=== PATIENT | female | born 1985 | race Caucasian/White ===

== ENCOUNTER 2021-02-27 10:01 | Emergency (ER) | payer MEDICAID, SELFPAY ==
[2021-02-27 10:22] VITALS: BP 129/77; PULSE 69; RESP 20; O2SAT 95; BMI 69.9
--- NOTE | 2021-02-27 10:45 | XR_ITS ---
PROCEDURE: XR RIBS LT MIN 3V W CXR1V CLINICAL INDICATION: left rib pain and popping after coughing COMPARISON: No exams were available for comparison FINDINGS: There is a mildly did offset fracture involving the lateral aspect of the left 8th rib with medial displacement of the distal fracture fragment by approximately 8 mm. No evidence of pneumothorax. Unremarkable cardiovascular structures with clear lungs. IMPRESSION: Mildly displaced left 8th rib Dictated by: Biju Mills MD 02/27/2021 11:20 Biju Mills MD in [place] 02/27/2021 11:20
[2021-02-27 11:23] VITALS: BP 126/72; PULSE 68; RESP 18; TEMP 36.6; O2SAT 97; BMI 46.3
--- NOTE | 2021-02-27 11:51 | HMH.EDUTC ---
[facility] [place] Clinical Impression: COPD exacerbation Left rib fracture Qualifiers: Encounter type: initial encounter Rib fracture type: single rib Fracture type: closed Qualified Code(s): S22.32XA - Fracture of one rib, left side, initial encounter for closed fracture Disposition: Home, Self-Care Condition on Discharge: Good Instructions: Rib Fracture, DI for Chronic Obstructive Pulmonary Disease, DI for Rib Fracture, DI for COVID-19 (Suspected or Confirmed ), Preventing the Spread of Coronavirus Discharge Instructions Additional Instructions: Use the incentive spirometer 10 times ever couple of hours while you are awake for the next 2 weeks. Take the medications as directed. Follow up with your primary care doctor. GO TO THE ER FOR ANY WORSENING SYMPTOMS, ESPECIALLY ANY WORSENING SHORTNESS OF BREATH, FEVER, ETC. Drink plenty of fluids. Quarantine until you know the results of your covid-19 test. If it is positive, the health department should call you and give you further instructions about your length of Quarantine and other things. Notify your school or workplace of your results and follow their instructions regarding return to work/school. The cough medication (promethazine dm) will make you drowsy, so don't drive or operate heavy machinery after taking it. Prescriptions: Promethazine/Dextromethorphan [Promethazine-Dm Syrup] 5 ml PO Q6HP PRN #240 ml PRN Reason: Cough Transmission Status: Received by [facility] predniSONE [Deltasone 10mg tablet] 10 mg PO DAILY 9 Days #21 tab Transmission Status: Received by [facility] Azithromycin [Z-Cleve 250mg Tab*] 250 mg PO UD DOSE PK #6 tab Transmission Status: Received by [facility] Referrals: Radha Rivera MD [Primary Care Provider] - Time of Disposition: 12:40 Medical Decision Making - Medical Records Medical records reviewed: No: I reviewed the patient's medical records. - Benji Inquiry Pt receiving controlled substance: No Vital Signs: 02/27/21 10:22 02/27/21 11:23 02/27/21 12:58 Temperature 97.9 F 97.9 F Temperature Source Oral Pulse Rate 68 Pulse Rate [Right Radial] 69 68 Respiratory Rate 20 18 18 Blood Pressure 126/72 Blood Pressure [Right Arm] 129/77 126/72 Blood Pressure Mean [Right Arm] 94 90 Blood Pressure Source [Right Arm] Automatic Cuff Automatic Cuff Blood Pressure Position [Right Arm] Sitting Sitting 02 Sat by Pulse Oximetry 95 97 Oxygen Delivery Method Room Air Room Air - Radiology Data #1 Image(s): Chest, Other (ribs) Image Reviewed: Yes I reviewed the patient's radiology image, Yes I have reviewed radiologist's interpretation Preliminary Findings: Abnormal PROCEDURE: XR RIBS LT MIN 3V W CXR1V CLINICAL INDICATION: left rib pain and popping after coughing COMPARISON: No exams were available for comparison FINDINGS: There is a mildly did offset fracture involving the lateral aspect of the left 8th rib with medial displacement of the distal fracture fragment by approximately 8 mm. No evidence of pneumothorax. Unremarkable cardiovascular structures with clear lungs. IMPRESSION: Mildly displaced left 8th rib Dictated by: Biju Mills MD 02/27/2021 11:20 Biju Mills MD in [place] 02/27/2021 11:20 [facility] [place] - General Stated complaint: lt rib pain, popping noise Time Seen by Provider: 02/27/21 11:51 Mode of Arrival: Wheelchair Source of Information: Patient Limitations: No Limitations Description of Symptoms (Recalled from Triage Doc. by RN): C/O lt rib pain x1 week. Pt advises that after coughing this am, she felt a pop in her ribs HEENT Symptoms (Recalled from RN notes): No Resp Symptoms (Recalled from RN notes): No Skin Symptoms (Recalled from RN notes): No MS Symptoms (Recalled from RN notes): No Functional Status (Recalled from RN notes): n/a - History of Present Illness Provider Complaint: She states that earlier today she was cough
[2021-02-27 12:58] VITALS: BP 126/72; PULSE 68; RESP 18; TEMP 36.6; O2SAT 97
== END 2021-02-27 13:00 | disposition home or self-care (01) ==
PROVIDERS: Emergency Provider Nurse Practitioner Family; PCP Emergency Medicine
DX: S22.32XA Fracture of one rib, left side, initial encounter for closed fracture (principal); J44.1 Chronic obstructive pulmonary disease with (acute) exacerbation
CPT/HCPCS: 71101; 99202; G0463

== ENCOUNTER 2021-03-12 20:44 | Emergency (ER) | payer MEDICAID, SELFPAY ==
[2021-03-12 20:47] VITALS: BP 105/70; PULSE 75; RESP 18; TEMP 36.9; O2SAT 94; BMI 53.0
--- NOTE | 2021-03-12 21:11 | CT_ITS ---
PROCEDURE INFORMATION: Exam: CT Abdomen And Pelvis With Contrast Exam date and time: 03/12/2021 9:11 PM Age: 35 years old Clinical indication: Abdominal pain; Localized; Left upper quadrant (luq); Prior surgery; Surgery date: 6+ months; Surgery type: Hysterectomy, gastric bypass; Patient HX: Luq abd pain, left sided rib pain; Additional info: Luq pain TECHNIQUE: Imaging protocol: Computed tomography of the abdomen and pelvis with contrast. Radiation optimization: All CT scans at this facility use at least one of these dose optimization techniques: automated exposure control; mA and/or kV adjustment per patient size (includes targeted exams where dose is matched to clinical indication); or iterative reconstruction. Contrast material: ISOVUE; Contrast volume: 75 ml; Contrast route: IV; COMPARISON: CR XR RIBS LT MIN 3V W CXR1V 02/27/2021 10:42 AM FINDINGS: Tubes, catheters and devices: There is a neurostimulator device situated in the right gluteal subcutaneous adipose tissue, with lead tip in the right hemipelvis. Liver: Liver is enlarged measuring 20 cm in craniocaudal dimension. Mild hepatic steatosis. Gallbladder and bile ducts: Cholecystectomy. No biliary dilation. Pancreas: Mild fatty atrophy of the pancreas. Spleen: Normal. No splenomegaly. Adrenal glands: Unremarkable. Kidneys and ureters: There are innumerable right renal cysts, largest of which measures nearly 6 cm in size. There are also several left renal cysts measuring up to 2.4 cm. No hydronephrosis. Stomach and bowel: Postsurgical changes of gastric bypass. No bowel obstruction. Moderate amount of solid stool throughout the colon. Colonic diverticulosis, extensive in the sigmoid region, without evidence of acute diverticulitis. Appendix: No evidence of appendicitis. Intraperitoneal space: No pneumoperitoneum. No ascites. Vasculature: No abdominal aortic aneurysm. Lymph nodes: No enlarged lymph nodes. Urinary bladder: Unremarkable as visualized. No wall thickening. Reproductive: Hysterectomy. Bones/joints: Mildly displaced fractures of the left posterolateral 8th and 9th ribs. Nonaggressive 0.8 cm lucent focus in the right femoral head, with a sclerotic margin, benign. Degenerative changes of the spine, most advanced distally. Mild bilateral hip osteoarthrosis. Soft tissues: Unremarkable. IMPRESSION: 1. No evidence of an acute traumatic injury within the abdomen/pelvis. 2. Acute, mildly displaced left posterolateral 7th and 8th rib fractures. 3. Bilateral renal cysts, extensive on the right. 4. Gastric bypass. No bowel obstruction. Colonic diverticulosis. COMMENTS: Consistent with the [place]'s Incidental Findings Committee white paper (J Am Kt Radiol 2018): Any incidental renal lesion less than 1 cm or classified as too small to characterize, or any incidental cystic renal lesion characterized as simple-appearing, is likely benign. No follow-up imaging is recommended for these lesions per consensus recommendations based on imaging criteria.
--- NOTE | 2021-03-12 21:11 | CT_ITS ---
PROCEDURE INFORMATION: Exam: CT Chest With Contrast; Diagnostic Exam date and time: 03/12/2021 9:11 PM Age: 35 years old Clinical indication: Left-sided; Patient HX: Llq abd pain, left sided rib pain, SOA; Additional info: Shortness of breath, left rib pain TECHNIQUE: Imaging protocol: Diagnostic computed tomography of the chest with contrast. Radiation optimization: All CT scans at this facility use at least one of these dose optimization techniques: automated exposure control; mA and/or kV adjustment per patient size (includes targeted exams where dose is matched to clinical indication); or iterative reconstruction. Contrast material: ISOVUE; Contrast volume: 75 ml; Contrast route: IV; COMPARISON: CR XR RIBS LT MIN 3V W CXR1V 02/27/2021 10:42 AM FINDINGS: Lungs: There is a 1.6 cm left lower lobe nodule with central calcification, most compatible with old granulomatous disease. Hamartoma would be a less likely possibility, given absence of intrinsic fat attenuation. In any case, it is presumed benign. Mild dependent atelectasis. No airspace consolidation or evidence of pneumonia. Pleural spaces: There is a small left pleural effusion measuring above simple fluid attenuation. No pneumothorax. Heart: Normal heart size. No pericardial effusion. No appreciable coronary arterial calcification. Aorta: Unremarkable. No aortic aneurysm. Lymph nodes: Unremarkable. No enlarged lymph nodes. Spleen: Spleen measures 12.5 cm in length, borderline enlarged. Stomach: Postsurgical changes of gastric bypass are partially visualized. Bones/joints: There are acute, mildly displaced fractures of the posterolateral left 8th and 9th ribs. Soft tissues: Mild soft tissue swelling in the left posterolateral chest wall around the rib fractures. IMPRESSION: 1. Acute, mildly displaced fractures of the posterolateral left 8th and 9th ribs. 2. Small left pleural effusion measuring above simple attenuation, likely hemothorax. 3. Benign calcified left lower lobe nodule, probably related to old granulomatous disease.
[2021-03-12 22:07] LABS: Basophils # 0.1 K/mm3 (0-0.2); Basophils % 1.1 % (0.1-2.0); Eosinophils # 0.2 K/mm3 (0.0-0.4); Lymphocytes # 1.5 K/mm3 (0.7-4.5); Lymphocytes % 19.4 % (10-50); Mean Corpuscular HGB Conc 31.5 g/dL (31.8-35.4); Mean Corpuscular Hemoglobin 30.1 pg (27.0-31.2); Mean Corpuscular Volume 95.8 fl (81-99); Mean Platelet Volume 8.1 fl (7.4-10.4); Monocytes # 0.5 K/mm3 (0.1-1.0); Monocytes % 6.9 % (1.7-9.3); Neutrophils # 5.4 K/mm3 (1.8-7.8); Neutrophils % 70.6 % (37.0-80.0); Platelet Count 191 K/mm3 (142-424); Red Blood Count 6.32 M/mm3 (4.20-5.40); Red Cell Distribution Width 14.5 % (11.5-17.5); White Blood Count 7.6 K/mm3 (4.8-10.8)
[2021-03-12 22:14] LABS: Alanine Aminotransferase 17 U/L (12-78); Albumin Level 4.1 g/dl (3.5-5.0); Albumin/Globulin Ratio 1.3 (1.1-1.8); Alkaline Phosphatase 114 U/L (38-126); Anion Gap 6.4 mEq/L (5-15); Aspartate Amino Transferase 21 U/L (14-36); Bilirubin,Total 0.5 mg/dl (0.2-1.3); Blood Urea Nitrogen 16 mg/dl (7-17); Calcium 8.7 mg/dl (8.4-10.2); Carbon Dioxide 34 mmol/L (22.0-30.0); Chloride 102 mmol/L (98-107); Creatinine Clearance Estimated 63 mL/min (50-200); Estimated Glomerular Filt Rate 64 ml/min (>60); GFR (African American) 77 ML/MIN (>60); Globulin 3.2 g/dL (1.3-3.2); Glucose 88 mg/dl (74-100); Lipase 47 U/L (23-300); Potassium 4.4 mmoL/L (3.5-5.1); Sodium 138 mmol/L (136-145); Total Protein,Serum 7.3 g/dl (6.3-8.2)
[2021-03-12 22:19] LABS: Hematocrit 60.4 % (37.0-47.0)
[2021-03-12 22:22] LABS: Hemoglobin 19.1 g/dL (12.2-16.2)
[2021-03-12 22:31] LABS: HCG Qualitative, Serum Negative (Negative)
--- NOTE | 2021-03-12 22:53 | HMH.EDGENADL ---
ED Disposition Clinical Impression: Ribs, multiple fractures Qualifiers: Encounter type: subsequent encounter Fracture type: closed Laterality: left Fracture healing: with routine healing Qualified Code(s): S22.42XD - Multiple fractures of ribs, left side, subsequent encounter for fracture with routine healing Disposition: Home, Self-Care Condition on Discharge: Good Instructions: DI for Rib Fracture, DI for Acute Pain -- Child Additional Instructions: Continue using your incentive spirometer and taking your pain medication at home - follow up wiht your PCP for further pain management Prescriptions: Lidocaine [Lidoderm 5% transdermal patch] 1 each TP Q24H 14 Days #14 patch Prescription Printed Promethazine/Dextromethorphan [Promethazine-Dm 6.25-15 mg/5Ml] 120 ml PO QID PRN #120 ml PRN Reason: Cough Prescription Printed Referrals: Radha Rivera MD [Primary Care Provider] - - Critical Care Critical Care Time: No Attestation: On 03/12/21, the high probability of a clinically significant, sudden or life threatening deterioration of the following system(s) required my full and direct attention, intervention and personal management. The time I documented below is in addition to time spent performing reported procedures but includes the following listed in this critical care notation. Medical Decision Making - Benji Inquiry Pt receiving controlled substance: No Vital Signs: 03/12/21 20:47 03/13/21 01:04 Temperature 98.5 F 98.5 F Temperature Source Oral Pulse Rate 79 Pulse Rate [Right] 75 Respiratory Rate 18 18 Blood Pressure 115/74 Blood Pressure [Right Arm] 105/70 L Blood Pressure Mean [Right Arm] 81 02 Sat by Pulse Oximetry 94 L - Lab Data Lab Results 03/12/21 21:59: WBC 7.6, RBC 6.32 H, Hgb 19.1 H, Hct 60.4 H*, MCV 95.8, MCH 30.1, MCHC 31.5 L, RDW 14.5, Plt Count 191, MPV 8.1, Neut % (Auto) 70.6, Lymph % (Auto) 19.4, [place] % (Auto) 6.9, Eos % (Auto) 2.0, Baso % (Auto) 1.1, Neut # (Auto) 5.4, Lymph # (Auto) 1.5, [place] # (Auto) 0.5, Eos # (Auto) 0.2, Baso # (Auto) 0.1 03/12/21 21:59: Sodium 138, Potassium 4.4, Chloride 102, Carbon Dioxide 34 H, Anion Gap 6.4, BUN 16, Creatinine 1.00, Estimated Creat Clear 63, Estimated GFR 64, Est GFR ( Amer) 77, Glucose 88, Calcium 8.7, Total Bilirubin 0.5, AST 21, ALT 17, Alkaline Phosphatase 114, Total Protein 7.3, Albumin 4.1, Globulin 3.2, Albumin/Globulin Ratio 1.3, Lipase 47 03/12/21 21:59: Serum HCG, Qual Negative 03/12/21 22:00: SARS-CoV-2 (PCR) Not detected, Influenza A Untype (PCR) Not detected, Influenza Type B (PCR) Not detected Result diagrams: 03/12/21 21:59 03/12/21 21:59 Orders (Tests/Meds): ED MEDICATIONS Discontinued Medications Generic Name Dose Route Start Last Admin Trade Name Toniq PRN Reason Stop Dose Admin Hydromorphone HCl 1 mg 03/13/21 00:06 03/13/21 00:10 Hydromorphone 2mg/Ml Syringe IV 03/13/21 00:07 1 mg ONCE ONE Administration Lactated Ringer's 1,000 mls @ 999 mls/hr 03/12/21 22:15 03/12/21 22:24 Lactated Ringer's 1000 Ml Bag IV 03/12/21 23:15 999 mls/hr .Q1H1M KELSEY Administration Iopamidol 75 ml 03/12/21 23:12 03/12/21 23:13 Iopamidol-370 (76%);100ml Bottle IV 03/12/21 23:13 75 ml ONCE ONE Administration Methylprednisolone Sodium Succinate 125 mg 03/12/21 21:44 03/12/21 22:07 Methylprednisolone Sod Succ 125mg Vial IV 03/12/21 21:45 125 mg ONCE ONE Administration Morphine Sulfate 4 mg 03/12/21 22:32 03/12/21 22:43 Morphine 4mg/Ml Syringe IV 03/12/21 22:33 4 mg ONCE ONE Administration Sodium Chloride 10 ml 03/12/21 23:12 03/12/21 23:13 Sodium Chloride 0.9% 10ml Syr (Rad Only) IV 03/12/21 23:13 10 ml ONCE ONE Administration Medical Decision Narrative: The patient is a 35 year old female who presents with left chest wall and LUQ pain and cough. She is awake, alert, stable. She is satting well on room air. She has significant pain. Labs incl
[2021-03-12 22:57] LABS: Coronavirus 19, PCR Not Detected (NotDetected); Influenza A, PCR Not Detected (NotDetected); Influenza B, PCR Not Detected (NotDetected)
[2021-03-13 01:04] VITALS: BP 115/74; PULSE 79; RESP 18; TEMP 36.9; O2SAT 95
== END 2021-03-13 01:30 | disposition home or self-care (01) ==
PROVIDERS: Emergency Provider Emergency Medicine; PCP Emergency Medicine
DX: S22.42XA Multiple fractures of ribs, left side, initial encounter for closed fracture (principal); J44.1 Chronic obstructive pulmonary disease with (acute) exacerbation; Z88.1 Allergy status to other antibiotic agents; Z88.8 Allergy status to other drugs, medicaments and biological substances
CPT/HCPCS: 71260; 74177; 80053; 83690; 84703; 85025; 96375; 99283; C9803; Q9967; U0003; U0005

== ENCOUNTER 2021-04-06 10:27 | Emergency (ER) | payer MEDICAID, SELFPAY ==
[2021-04-06 10:28] VITALS: BP 115/72; PULSE 98; RESP 18; TEMP 37.2; O2SAT 92; BMI 52.9
--- NOTE | 2021-04-06 10:58 | CT_ITS ---
PROCEDURE: CT ANGIO CHEST PE PROTOCOL CLINCIAL INDICATION: SOB, cough COMPARISON: CT CT CHEST W CON from 03/12/2021 TECHNIQUE: IV Contrast: 70ML Isovue 370 Axial images obtained with sagittal and coronal reformats. All CT scans at the facility use one or more dose reduction, viz: automated exposure control, ma/kV adjustment per patient size (including targeted exams where dose is matched to indication, i.e. head), or iterative reconstruction technique. FINDINGS: HEART AND MEDIASTINAL STRUCTURES: Unremarkable. LUNGS AND PLEURAL SPACES: There is consolidation of the left lower lobe with peribronchial cuffing and a small prominent left hilar lymph node. In addition, there is a 11 millimeter nodule in the left lower lobe which is not well visualized today due to the consolidation however appears overall stable since the prior study. BONY STRUCTURES: There are fractures of the left lateral 7th 8th and 9th ribs without significant displacement. The left lateral 7th rib fracture is new. The 8th and 9th rib fractures are stable since prior study. There is no pneumothorax. UPPER ABDOMEN: Unremarkable. ADDITIONAL FINDINGS: There is no evidence of pulmonary embolism to the segmental and subsegmental arteries. Prior Rubi-en-Y gastric bypass. Thoracic spondylosis. IMPRESSION: 1. No evidence of pulmonary embolism. 2. New left lateral 7th rib fracture. 3. New left lower lobe consolidation which could represent aspiration, pneumonia, or atelectasis due to the rib fracture. 4. Stable left lower lobe pulmonary nodule. Dictated by: Trish Burns MD 04/06/2021 13:26 Trish Burns MD in [place] 04/06/2021 13:26
[2021-04-06 11:01] VITALS: BP 107/69; PULSE 87; O2SAT 92
--- NOTE | 2021-04-06 11:16 | HMH.EDGENADL ---
ED Disposition Clinical Impression: Left rib fracture Qualifiers: Encounter type: initial encounter Rib fracture type: single rib Fracture type: closed Qualified Code(s): S22.32XA - Fracture of one rib, left side, initial encounter for closed fracture Left lower lobe pneumonia Qualifiers: Pneumonia type: due to unspecified organism Qualified Code(s): J18.9 - Pneumonia, unspecified organism Disposition: Home, Self-Care Condition on Discharge: Good Instructions: DI for Rib Fracture Prescriptions: Doxycycline Hyclate [Doxycycline Hyclate 100mg Tablet] 100 mg PO Q12 #20 tab Transmission Status: Pending to [facility] Referrals: Provider,Referral, [Primary Care Provider] - - Critical Care Critical Care Time: No Attestation: On 04/06/21, the high probability of a clinically significant, sudden or life threatening deterioration of the following system(s) required my full and direct attention, intervention and personal management. The time I documented below is in addition to time spent performing reported procedures but includes the following listed in this critical care notation. Medical Decision Making - Medical Records Medical records reviewed: Yes: I reviewed the patient's medical records. - Benji Inquiry Pt receiving controlled substance: No Benji was queried for this patient: Yes Reference #:: [id number] Vital Signs: 04/06/21 10:28 04/06/21 11:01 04/06/21 11:30 Temperature 98.9 F Temperature Source Oral Pulse Rate 87 85 Pulse Rate [Left Radial] 98 H Respiratory Rate 18 Blood Pressure 107/69 L 113/66 Blood Pressure [Right Arm] 115/72 Blood Pressure Mean 81 79 Blood Pressure Mean [Right Arm] 86 Blood Pressure Source [Right Arm] Automatic Cuff Blood Pressure Position [Right Arm] Sitting 02 Sat by Pulse Oximetry 92 L 88 L 88 L Oxygen Delivery Method Room Air 04/06/21 12:00 Temperature Temperature Source Pulse Rate 86 Pulse Rate [Left Radial] Respiratory Rate Blood Pressure 104/68 L Blood Pressure [Right Arm] Blood Pressure Mean 78 Blood Pressure Mean [Right Arm] Blood Pressure Source [Right Arm] Blood Pressure Position [Right Arm] 02 Sat by Pulse Oximetry 88 L Oxygen Delivery Method - Lab Data Lab Results 04/06/21 11:10: WBC 7.3, RBC 6.20 H, Hgb 18.7 H, Hct 59.1 H, MCV 95.4, MCH 30.2, MCHC 31.6 L, RDW 15.1, Plt Count 172, MPV 8.5, Neut % (Auto) 91.0 H, Lymph % (Auto) 6.6 L, [place] % (Auto) 1.8, Eos % (Auto) 0.1, Baso % (Auto) 0.5, Neut # (Auto) 6.7, Lymph # (Auto) 0.5 L, [place] # (Auto) 0.1, Eos # (Auto) 0.0, Baso # (Auto) 0.0, Total Counted 100, Neutrophils % (Manual) 93 H, Lymphocytes % (Manual) 5 L, Monocytes % (Manual) 2, Platelet Estimate Normal, Hypochromasia 1+, Macrocytosis 1+ 04/06/21 11:10: Sodium 139, Potassium 3.8, Chloride 99, Carbon Dioxide 34 H, Anion Gap 9.8, BUN 22 H, Creatinine 1.00, Estimated Creat Clear 60, Estimated GFR 64, Est GFR ( Amer) 77, Glucose 127 H, Calcium 8.8, Total Bilirubin 0.4, AST 20, ALT 16, Alkaline Phosphatase 121, Troponin I < 0.01, Total Protein 7.0, Albumin 3.9, Globulin 3.1, Albumin/Globulin Ratio 1.3 Result diagrams: 04/06/21 11:10 04/06/21 11:10 Orders (Tests/Meds): ED MEDICATIONS Discontinued Medications Generic Name Dose Route Start Last Admin Trade Name Freq PRN Reason Stop Dose Admin Sodium Chloride 1,000 mls @ 999 mls/hr 04/06/21 11:00 04/06/21 11:03 Sod Chlor 0.9% 1000ml Bag IV 04/06/21 12:00 999 mls/hr .Q1H1M KELSEY Administration Iopamidol 75 ml 04/06/21 12:36 04/06/21 12:36 Iopamidol-370 (76%);100ml Bottle IV 04/06/21 12:37 75 ml ONCE ONE Administration Sodium Chloride 10 ml 04/06/21 12:36 04/06/21 12:36 Sodium Chloride 0.9% 10ml Syr (Rad Only) IV 04/06/21 12:37 10 ml ONCE ONE Administration Sodium Chloride 50 ml 04/06/21 12:36 04/06/21 12:36 0.9 % Sodium Chloride 50 Ml Vial IV 04/06/21 12:37 50 ml ONCE ONE Administration ORDERS Marifer
[2021-04-06 11:30] VITALS: BP 113/66; PULSE 85; O2SAT 92
[2021-04-06 11:30] LABS: Chloride 99 mmol/L (98-107)
[2021-04-06 11:31] LABS: Potassium 3.8 mmoL/L (3.5-5.1); Sodium 139 mmol/L (136-145)
[2021-04-06 11:33] LABS: Alanine Aminotransferase 16 U/L (12-78); Alkaline Phosphatase 121 U/L (38-126); Aspartate Amino Transferase 20 U/L (14-36); Bilirubin,Total 0.4 mg/dl (0.2-1.3); Blood Urea Nitrogen 22 mg/dl (7-17); Creatinine Clearance Estimated 60 mL/min (50-200); Estimated Glomerular Filt Rate 64 ml/min (>60); GFR (African American) 77 ML/MIN (>60)
[2021-04-06 11:34] LABS: Albumin Level 3.9 g/dl (3.5-5.0); Albumin/Globulin Ratio 1.3 (1.1-1.8); Anion Gap 9.8 mEq/L (5-15); Calcium 8.8 mg/dl (8.4-10.2); Carbon Dioxide 34 mmol/L (22.0-30.0); Globulin 3.1 g/dL (1.3-3.2); Glucose 127 mg/dl (74-100)
[2021-04-06 11:35] LABS: Basophils % 0.5 % (0.1-2.0); Eosinophils % 0.1 % (0.1-12.0); Lymphocytes # 0.5 K/mm3 (0.7-4.5); Lymphocytes % 6.6 % (10-50); Mean Corpuscular HGB Conc 31.6 g/dL (31.8-35.4); Mean Corpuscular Hemoglobin 30.2 pg (27.0-31.2); Mean Corpuscular Volume 95.4 fl (81-99); Mean Platelet Volume 8.5 fl (7.4-10.4); Monocytes # 0.1 K/mm3 (0.1-1.0); Monocytes % 1.8 % (1.7-9.3); Neutrophils # 6.7 K/mm3 (1.8-7.8); Platelet Count 172 K/mm3 (142-424); Red Cell Distribution Width 15.1 % (11.5-17.5); White Blood Count 7.3 K/mm3 (4.8-10.8)
[2021-04-06 11:42] LABS: Hematocrit 59.1 % (37.0-47.0); Hemoglobin 18.7 g/dL (12.2-16.2)
[2021-04-06 11:44] LABS: MANUAL DIFFERENTIAL MANUAL DIFFERENTIAL (MANUAL DIFF)
[2021-04-06 11:46] LABS: Troponin I < 0.01 ng/ml (0.00-0.034)
[2021-04-06 11:56] LABS: Hypochromasia 1+; Lymphocytes % 5 % (10-50); Macrocytosis 1+; Monocytes % 2 % (2-9); Neutrophils % 93 % (42-76); Platelet Estimate Normal; Total Cells Counted 100
[2021-04-06 12:00] VITALS: BP 104/68; PULSE 86; O2SAT 92
[2021-04-06 14:51] VITALS: BP 104/68; PULSE 86; RESP 16; TEMP 37.2; O2SAT 92
== END 2021-04-06 14:52 | disposition home or self-care (01) ==
PROVIDERS: Emergency Provider Emergency Medicine
DX: S22.32XA Fracture of one rib, left side, initial encounter for closed fracture (principal); J18.9 Pneumonia, unspecified organism; J44.9 Chronic obstructive pulmonary disease, unspecified
CPT/HCPCS: 71275; 80053; 84484; 85007; 85025; 96365; 96375; 99283; Q9967

== ENCOUNTER → 2021-06-10 13:58 | Outpatient (CLI) | payer MEDICAID, SELFPAY | PROVIDERS: Visit Provider Nurse Practitioner | DX: Z20.822 Contact with and (suspected) exposure to COVID-19 (principal) | CPT/HCPCS: C9803; U0003; U0005 ==

== ENCOUNTER 2021-06-23 16:16 | Emergency (ER) | payer MEDICAID, SELFPAY ==
[2021-06-23 16:18] VITALS: BP 143/96; PULSE 103; RESP 19; TEMP 36.8; O2SAT 94; BMI 53.6
[2021-06-23 16:52] VITALS: BMI 53.6
[2021-06-23 16:57] LABS: Microscopic, Urine URINE MICROSCOPIC (MICROSCOPIC)
[2021-06-23 17:00] LABS: Appearance,Urine CLEAR (Clear); Bilirubin,Urine Negative (Negative); Blood, Urine Negative (Negative); Color,Urine YELLOW (Yellow); Glucose,Urine (UA) Negative (Negative); Ketones,Urine Negative (Negative); Leukocyte Esterase,Urine Negative (Negative); Nitrate,Urine Negative (Negative); Protein,Urine Negative (Negative); Specific Gravity, Urine 1.015 (1.005-1.030); Urobilinogen,Urine 0.2 EU/dl (0.2)
[2021-06-23 17:01] LABS: Coronavirus 19, PCR Not Detected (NotDetected); Influenza A, PCR Not Detected (NotDetected); Influenza B, PCR Not Detected (NotDetected)
[2021-06-23 17:04] LABS: Chloride 101 mmol/L (98-107); Potassium 3.9 mmoL/L (3.5-5.1); Sodium 137 mmol/L (136-145)
[2021-06-23 17:07] LABS: Alanine Aminotransferase 19 U/L (12-78); Albumin Level 4.1 g/dl (3.5-5.0); Albumin/Globulin Ratio 1.2 (1.1-1.8); Alkaline Phosphatase 159 U/L (38-126); Anion Gap 7.9 mEq/L (5-15); Aspartate Amino Transferase 21 U/L (14-36); Bilirubin,Total 0.7 mg/dl (0.2-1.3); Blood Urea Nitrogen 16 mg/dl (7-17); Calcium 8.8 mg/dl (8.4-10.2); Carbon Dioxide 32 mmol/L (22.0-30.0); Creatinine Clearance Estimated 52 mL/min (50-200); Estimated Glomerular Filt Rate 57 ml/min (>60); GFR (African American) 69 ML/MIN (>60); Globulin 3.4 g/dL (1.3-3.2); Glucose 110 mg/dl (74-100); Lipase 56 U/L (23-300); Total Protein,Serum 7.5 g/dl (6.3-8.2)
[2021-06-23 17:12] LABS: Urine Pregnancy, HCG Qual. Negative (Negative)
[2021-06-23 17:17] LABS: Basophils # 0.2 K/mm3 (0-0.2); Eosinophils # 0.6 K/mm3 (0.0-0.4); Lymphocytes # 1.6 K/mm3 (0.7-4.5); Lymphocytes % 17.6 % (10-50); Mean Corpuscular HGB Conc 32.2 g/dL (31.8-35.4); Mean Corpuscular Hemoglobin 29.9 pg (27.0-31.2); Mean Corpuscular Volume 92.7 fl (81-99); Mean Platelet Volume 8.3 fl (7.4-10.4); Monocytes # 0.5 K/mm3 (0.1-1.0); Monocytes % 5.6 % (1.7-9.3); Neutrophils # 6.4 K/mm3 (1.8-7.8); Neutrophils % 68.7 % (37.0-80.0); Platelet Count 218 K/mm3 (142-424); Red Blood Count 6.51 M/mm3 (4.20-5.40); Red Cell Distribution Width 15.8 % (11.5-17.5); White Blood Count 9.3 K/mm3 (4.8-10.8)
[2021-06-23 17:20] LABS: Squamous Epithelial Cell,Urine Occasional #/hpf (0-5); WBC,Urine Occasional #/hpf (0-3)
[2021-06-23 17:21] LABS: Bacteria,Urine Trace /lpf
[2021-06-23 17:22] LABS: Hematocrit 60.3 % (37.0-47.0)
--- NOTE | 2021-06-23 17:24 | PC.NURSE ---
Spoke with govind in lab about a critical lab value of HCT of 60.3.
--- NOTE | 2021-06-23 17:34 | HMH.EDABDPAI ---
ED Disposition Clinical Impression: Gastroenteritis Disposition: Home, Self-Care Condition on Discharge: Good Instructions: DI for Acute Abdominal Pain Prescriptions: Promethazine HCl [Phenergan 25mg tab] 25 mg PO BID #12 tab Transmission Status: Pending to [facility] Referrals: Laura Ortiz PA [Primary Care Provider] - - Critical Care Critical Care Time: No Attestation: On 06/23/21, the high probability of a clinically significant, sudden or life threatening deterioration of the following system(s) required my full and direct attention, intervention and personal management. The time I documented below is in addition to time spent performing reported procedures but includes the following listed in this critical care notation. Medical Decision Making - Medical Records Medical records reviewed: Yes: I reviewed the patient's medical records. - Benji Inquiry Pt receiving controlled substance: No Vital Signs: 06/23/21 16:18 Temperature 98.3 F Temperature Source Oral Pulse Rate [Right Radial] 103 H Respiratory Rate 19 Blood Pressure [Right Arm] 143/96 H Blood Pressure Mean [Right Arm] 111 Blood Pressure Source [Right Arm] Automatic Cuff Blood Pressure Position [Right Arm] Sitting 02 Sat by Pulse Oximetry 94 L Oxygen Delivery Method Room Air - Lab Data Lab Results 06/23/21 16:47: Urine Color Yellow, Urine Appearance Clear, Urine pH 6.0, Ur Specific [place] 1.015, Urine Protein Negative, Urine Glucose (UA) Negative, Urine Ketones Negative, Urine Blood Negative, Urine Nitrate Negative, Urine Bilirubin Negative, Urine Urobilinogen 0.2, Ur Leukocyte Esterase Negative, Urine RBC None, Urine WBC Occasional, Ur Squamous Epith Cells Occasional, Urine Bacteria Trace 06/23/21 16:47: WBC 9.3, RBC 6.51 H, Hct 60.3 H*, MCV 92.7, MCH 29.9, MCHC 32.2, RDW 15.8, Plt Count 218, MPV 8.3, Neut % (Auto) 68.7, Lymph % (Auto) 17.6, [place] % (Auto) 5.6, Eos % (Auto) 6.0, Baso % (Auto) 2.0, Neut # (Auto) 6.4, Lymph # (Auto) 1.6, [place] # (Auto) 0.5, Eos # (Auto) 0.6 H, Baso # (Auto) 0.2 06/23/21 16:47: Urine HCG, Qual Negative 06/23/21 16:47: Sodium 137, Potassium 3.9, Chloride 101, Carbon Dioxide 32 H, Anion Gap 7.9, BUN 16, Creatinine 1.10 H, Estimated Creat Clear 52, Estimated GFR 57 L, Est GFR ( Amer) 69, Glucose 110 H, Calcium 8.8, Total Bilirubin 0.7, AST 21, ALT 19, Alkaline Phosphatase 159 H, Total Protein 7.5, Albumin 4.1, Globulin 3.4 H, Albumin/Globulin Ratio 1.2, Lipase 56 06/23/21 16:58: SARS-CoV-2 (PCR) Not detected, Influenza A Untype (PCR) Not detected, Influenza Type B (PCR) Not detected Result diagrams: 06/23/21 16:47 06/23/21 16:47 Orders (Tests/Meds): ED MEDICATIONS Generic Name Dose Route Start Last Admin Trade Name Freq PRN Reason Stop Dose Admin Sodium Chloride 1,000 mls @ 999 mls/hr 06/23/21 17:00 06/23/21 16:57 Sod Chlor 0.9% 1000ml Bag IV 06/23/21 18:00 999 mls/hr .Q1H1M KELSEY Administration Discontinued Medications Generic Name Dose Route Start Last Admin Trade Name Freq PRN Reason Stop Dose Admin Promethazine HCl 25 mg 06/23/21 16:50 06/23/21 16:57 Promethazine Hcl 25mg/Ml 1ml Vial IV 06/23/21 16:51 25 mg ONCE ONE Administration Sodium Chloride 25 ml 06/23/21 16:50 06/23/21 16:57 Sodium Chloride 0.9% 25ml Bag IV 06/23/21 16:51 25 ml ONCE ONE Administration ORDERS Category Date Time Status Complete Blood Count Auto Diff Stat Lab 06/23/21 16:47 Results Lactic Acid Stat Lab 06/23/21 16:10 Received Blood Culture Stat Micro 06/23/21 16:10 Received - Reevaluation(s) Time: 18:15 Reevaluation #1: On reevaluation, the patient is feeling much better. She is tolerating oral intake at this time. Repeat abdominal examination is benign. No evidence of acute abdomen. Patient's lipase was actually within normal limits. I did instruct her to do clear liquid diet for the next 48 hours. She is to follow-up with her PCP at that time. Giv
[2021-06-23 18:20] LABS: Hemoglobin 19.5 g/dL (12.2-16.2)
[2021-06-23 19:02] VITALS: BP 140/90; PULSE 92; RESP 18; TEMP 36.7; O2SAT 99
== END 2021-06-23 19:04 | disposition home or self-care (01) ==
PROVIDERS: Emergency Provider Emergency Medicine; PCP Physician Assistant Medical
DX: K52.9 Noninfective gastroenteritis and colitis, unspecified (principal); K86.1 Other chronic pancreatitis; Z20.822 Contact with and (suspected) exposure to COVID-19
CPT/HCPCS: 80053; 81001; 81025; 83605; 83690; 85025; 87040; 96365; 96375; 99282; C9803; U0003; U0005

== ENCOUNTER 2021-07-16 11:14 | Emergency (ER) | payer MEDICAID, SELFPAY ==
[2021-07-16 11:16] VITALS: BP 112/76; PULSE 91; RESP 16; TEMP 36.5; O2SAT 92; BMI 52.0
--- NOTE | 2021-07-16 11:43 | XR_ITS ---
FINAL REPORT CLINICAL HISTORY: pain FINDINGS: RIGHT FOOT Three views of the right foot demonstrate no acute fracture or dislocation. The visualized joint spaces are normally aligned. There are calcaneal spurs. The soft tissues are unremarkable. IMPRESSION: No acute bony abnormality. Reviewed, Interpreted and Dictated by Ayden Yeager III, MD Transcribed by Nina Noe Authenticated by Ayden Yeager III, MD on 07/16/2021 01:00:34 PM [facility]
--- NOTE | 2021-07-16 11:43 | XR_ITS ---
FINAL REPORT CLINICAL HISTORY: pain FINDINGS: RIGHT ANKLE Three views of the right ankle demonstrate no acute fracture or dislocation. The visualized joint spaces are normally aligned. There are calcaneal spurs. The soft tissues are unremarkable. IMPRESSION: No acute bony abnormality. Reviewed, Interpreted and Dictated by Ayden Yeager III, MD Transcribed by Nina Noe Authenticated by Ayden Yeager III, MD on 07/16/2021 01:00:38 PM [facility]
--- NOTE | 2021-07-16 11:52 | PC.NURSE ---
Radiology at bedside
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
--- NOTE | 2021-07-16 14:03 | PC.NURSE ---
ISSAC WRAP, BOOT APPLIED TO RT FOOT. CRUTCHES GIVEN WITH INSTRUCTIONS AND PT DEMO.
[2021-07-16 14:05] VITALS: BP 132/78; PULSE 78; RESP 16; TEMP 36.6; O2SAT 98
== END 2021-07-16 14:08 | disposition home or self-care (01) ==
PROVIDERS: Emergency Provider Emergency Medicine; PCP Emergency Medicine
DX: S93.601A Unspecified sprain of right foot, initial encounter (principal); X50.1XXA Overexertion from prolonged static or awkward postures, initial encounter; Y92.019 Unspecified place in single-family (private) house as the place of occurrence of the external cause
CPT/HCPCS: 73610; 73630; 99282

== ENCOUNTER 2021-08-30 20:32 | Emergency (ER) | payer MEDICAID, SELFPAY ==
--- NOTE | 2021-08-30 20:38 | XR_ITS ---
PROCEDURE INFORMATION: Exam: XR Right Foot Exam date and time: 08/30/2021 8:57 PM Age: 36 years old Clinical indication: Injury or trauma; Fall; Sprain or strain; Foot; Right TECHNIQUE: Imaging protocol: XR Right foot. Views: 3 or more views. COMPARISON: CR XR FOOT RT MIN 3V 07/16/2021 11:48 AM FINDINGS: Bones/joints: Calcaneal spurring. No acute fracture or dislocation. Soft tissues: Normal. IMPRESSION: No acute findings.
--- NOTE | 2021-08-30 20:38 | XR_ITS ---
PROCEDURE INFORMATION: Exam: XR Right Ankle Exam date and time: 08/30/2021 8:54 PM Age: 36 years old Clinical indication: Injury or trauma; Fall; Sprain or strain; Ankle; Right TECHNIQUE: Imaging protocol: XR Right ankle. Views: 3 or more views. COMPARISON: CR XR ANKLE RT MIN 3V 07/16/2021 11:46 AM FINDINGS: Bones/joints: Stable lucency involving the medial talar dome reflecting osteochondral defect. No acute fracture or dislocation. Soft tissues: Periarticular soft tissue swelling. IMPRESSION: Stable osteochondral defect involving the medial talar dome. No additional new finding when compared to the previous study.
--- NOTE | 2021-08-30 20:38 | XR_ITS ---
PROCEDURE INFORMATION: Exam: XR Right Tibia and Fibula Exam date and time: 08/30/2021 8:55 PM Age: 36 years old Clinical indication: Injury or trauma; Fall; Sprain or strain; Lower leg; Right TECHNIQUE: Imaging protocol: XR Right tibia and fibula. Views: 2 views. COMPARISON: CR XR FOOT RT MIN 3V 07/16/2021 11:48 AM FINDINGS: Bones/joints: Normal. Soft tissues: Normal. IMPRESSION: No acute findings.
[2021-08-30 21:00] VITALS: BP 128/86; PULSE 88; RESP 19; TEMP 36.6; O2SAT 99; BMI 50.6
--- NOTE | 2021-08-30 21:23 | HMH.EDUTC ---
[facility] [place] Clinical Impression: Right ankle sprain Qualifiers: Encounter type: initial encounter Involved ligament of ankle: unspecified ligament Qualified Code(s): S93.401A - Sprain of unspecified ligament of right ankle, initial encounter Disposition: Home, Self-Care Condition on Discharge: Good Instructions: DI for Ankle Sprain Additional Instructions: Weightbearing as tolerated rest Ice with cold pack for 20 minutes remove may repeat for comfort every hour Lalit wrap for support and swelling no less in the shower. Be sure not too tight but not to lose either Elevate with ankle above your heart as much as possible to help reduce swelling and therefore pain Ibuprofen every 6 hours as needed for pain or inflammation. If needs something more you can take Tylenol every 4 hours as needed as long as her primary care has told he was okayed for you to take both. If improving any do not need to follow-up you can bring begin exercising 2-3 weeks after injury. Follow-up immediately if new or worsening symptoms or no noticeable improvement over the next 3-5 days. call ortho Referrals: Radha Rivera MD [Primary Care Provider] - Nila Hwang DPM [Staff Physician] - Time of Disposition: 21:32 Medical Decision Making - Benji Inquiry Pt receiving controlled substance: No Orders (Tests/Meds): ORDERS Category Date Time Status XR ankle RT min 3V Stat Exams 08/30/21 20:38 Taken XR foot RT min 3V Stat Exams 08/30/21 20:38 Taken XR tibia fibula RT 2V Stat Exams 08/30/21 20:38 Taken [facility] [place] - General Chief complaint: Urgent [facility] Stated complaint: AO03/19 R foot injury Time Seen by Provider: 08/30/21 21:23 Mode of Arrival: Ambulatory Source of Information: Patient Limitations: No Limitations - History of Present Illness Provider Complaint: 36 yr old female presents for rt foot pain. pt states she tripped over her feet yesterday and fell. states pain is in the back of foot - Related Data Previous Rx's Medication Instructions Recorded Azithromycin [Z-Cleve 250mg Tab*] 250 mg PO UD DOSE PK #6 tab 02/27/21 Promethazine/Dextromethorphan 5 ml PO Q6HP PRN #240 ml 02/27/21 [Promethazine-Dm Syrup] predniSONE [Deltasone 10mg tablet] 10 mg PO DAILY 9 Days #21 tab 02/27/21 Lidocaine [Lidoderm 5% transdermal 1 each TP Q24H 14 Days #14 patch 03/13/21 patch] Promethazine/Dextromethorphan 120 ml PO QID PRN #120 ml 03/13/21 [Promethazine-Dm 6.25-15 mg/5Ml] Doxycycline Hyclate [Doxycycline 100 mg PO Q12 #20 tab 04/06/21 Hyclate 100mg Tablet] Promethazine HCl [Phenergan 25mg 25 mg PO BID #12 tab 06/23/21 tab] Allergies Allergy/AdvReac Type Severity Reaction Status Date / Time fexofenadine [From Yessenia] Allergy Verified 02/27/21 12:45 leuprolide [From Lupron] Allergy Verified 02/27/21 12:45 NSAIDS (Non-Steroidal Allergy Verified 02/27/21 12:45 Anti-Inflamma ropinirole [From Requip] Allergy Verified 02/27/21 12:45 vancomycin Allergy Verified 02/27/21 12:45 [facility] History - Hepatitis A Screen Attestation statement:: This patient has been screened for Hepatitis A risk factors. I have reviewed the patient's past medical history: Yes ROS Obtained: Yes Systems reviewed as appropriate & no additional complaints - Constitutional Constitutional: Reports system reviewed and no additional complaints, except as docu, Denies fever(s) - Eyes Eyes: Reports system reviewed and no additional complaints, except as docu, Denies blurry vision - ENT Ears, Nose, Mouth, and Throat: Reports system reviewed and no additional complaints, except as docu, Denies sore throat - Cardiovascular Cardiovascular: Reports system reviewed and no additional complaints, except as docu, Denies chest pain - Respiratory Respiratory: Reports system reviewed and no additional complaints, except as docu, Denies change in phlegm color - Gastrointestinal Gastrointestingal: Reports: system reviewed and
[2021-08-30 21:36] VITALS: BP 128/86; PULSE 88; RESP 19; TEMP 36.6; O2SAT 99
== END 2021-08-30 21:45 | disposition home or self-care (01) ==
PROVIDERS: Emergency Provider Nurse Practitioner Family; PCP Emergency Medicine
DX: S93.401A Sprain of unspecified ligament of right ankle, initial encounter (principal); Z79.51 Long term (current) use of inhaled steroids; Z79.899 Other long term (current) drug therapy; Z88.0 Allergy status to penicillin; Z88.1 Allergy status to other antibiotic agents; Z88.3 Allergy status to other anti-infective agents; Z88.8 Allergy status to other drugs, medicaments and biological substances
CPT/HCPCS: 73590; 73610; 73630; 99213; G0463

== ENCOUNTER 2022-05-23 21:53 | Emergency (ER) | payer OTHER, MEDICAID, SELFPAY ==
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
[2022-05-23 21:55] VITALS: BP 146/98; PULSE 112; RESP 18; TEMP 37.1; O2SAT 95; BMI 51.2
--- NOTE | 2022-05-23 21:59 | PC.NURSE ---
Cancelled trauma alert
--- NOTE | 2022-05-23 22:04 | ECG_ITS ---
APPROVED REPORT Exam: Resting ECG HR:128 bpm ECG Measurements Heart Rate 128 AXES MO 139 P 42 QRSd 97 QRS 91 QT 323 T 47 QTc 399 Conclusion SINUS TACHYCARDIA BORDERLINE RIGHT AXIS DEVIATION [QRS AXIS > 90] NONSPECIFIC T-WAVE ABNORMALITY ABNORMAL RHYTHM ECG UNCONFIRMED REPORT Electronically signed by : Sandoval Sibley MD 05/24/2022 19:56:28
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
[2022-05-23 22:20] LABS: Alanine Aminotransferase 20 U/L (12-78); Albumin Level 4.5 g/dl (3.5-5.0); Alkaline Phosphatase 234 U/L (38-126); Anion Gap 10.6 mEq/L (5-15); Aspartate Amino Transferase 32 U/L (14-36); Bilirubin,Direct 0.4 mg/dl (0.0-0.4); Bilirubin,Indirect 0.4 mg/dL (0.0-0.9); Bilirubin,Total 0.8 mg/dl (0.2-1.3); Bilirubin,Unconjugated 0.4 mg/dL (0.0-1.1); Blood Urea Nitrogen 14 mg/dl (7-17); Calcium 9.1 mg/dl (8.4-10.2); Carbon Dioxide 32 mmol/L (22.0-30.0); Chloride 96 mmol/L (98-107); Creatine Kinase 289 U/L (30-135); Estimated Glomerular Filt Rate 63 ml/min (>60); GFR (African American) 77 ML/MIN (>60); Glucose 121 mg/dl (74-100); Potassium 3.6 mmoL/L (3.5-5.1); Sodium 135 mmol/L (136-145)
[2022-05-23 22:26] LABS: Basophils # 0.1 K/mm3 (0-0.2); Basophils % 0.7 % (0.1-2.0); Eosinophils # 0.1 K/mm3 (0.0-0.4); Lymphocytes # 1.5 K/mm3 (0.7-4.5); Lymphocytes % 10.9 % (10-50); Mean Corpuscular HGB Conc 32.5 g/dL (31.8-35.4); Mean Corpuscular Volume 89.2 fl (81-99); Mean Platelet Volume 8.2 fl (7.4-10.4); Monocytes # 0.8 K/mm3 (0.1-1.0); Monocytes % 6.2 % (1.7-9.3); Neutrophils # 10.9 K/mm3 (1.8-7.8); Neutrophils % 81.2 % (37.0-80.0); Platelet Count 203 K/mm3 (142-424); Red Cell Distribution Width 15.8 % (11.5-17.5); White Blood Count 13.4 K/mm3 (4.8-10.8)
[2022-05-23 22:27] LABS: Hematocrit 56.2 % (37.0-47.0); Hemoglobin 18.3 g/dL (12.2-16.2)
[2022-05-23 22:32] LABS: Troponin I 0.02 ng/ml (0.00-0.034)
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
[2022-05-23 22:51] VITALS: BMI 51.2
[2022-05-23 23:35] VITALS: BP 135/96; PULSE 115; O2SAT 93
--- NOTE | 2022-05-23 23:40 | PC.NURSE ---
Updated pt that we are waiting on scan results. Pt advised that she had to use the bathroom, but was able to hold off until we could clear her c-spine.
--- NOTE | 2022-05-23 23:58 | PC.NURSE ---
Pt ambulatory to bathroom and back to bed with family assistance. Pt provided with pillow and made comfortable. No other needs voiced at this time.
[2022-05-24 00:52] LABS: Microscopic, Urine URINE MICROSCOPIC (MICROSCOPIC)
[2022-05-24 00:53] LABS: Appearance,Urine SL CLOUDY (Clear); Bilirubin,Urine Negative (Negative); Blood, Urine 1+ (Negative); Color,Urine YELLOW (Yellow); Glucose,Urine (UA) Negative (Negative); Ketones,Urine Negative (Negative); Leukocyte Esterase,Urine Negative (Negative); Nitrate,Urine POSITIVE (Negative); Protein,Urine Negative (Negative); Specific Gravity, Urine 1.015 (1.005-1.030); Urobilinogen,Urine 0.2 EU/dl (0.2)
[2022-05-24 00:56] VITALS: BP 130/81; PULSE 106; RESP 16; TEMP 37.1; O2SAT 95
[2022-05-24 00:56] LABS: Bacteria,Urine 1+ /lpf; Renal Epithelial Cells,Urine Occasional #/lpf (0); WBC,Urine 20-50 #/hpf (0-3)
== END 2022-05-24 01:06 | disposition home or self-care (01) ==
PROVIDERS: Emergency Provider Emergency Medicine; PCP Emergency Medicine
DX: J18.9 Pneumonia, unspecified organism (principal); S22.39XA Fracture of one rib, unspecified side, initial encounter for closed fracture; T21.01XA Burn of unspecified degree of chest wall, initial encounter; J45.901 Unspecified asthma with (acute) exacerbation; N30.10 Interstitial cystitis (chronic) without hematuria; R00.0 Tachycardia, unspecified; K92.0 Hematemesis; Q61.3 Polycystic kidney, unspecified; F17.200 Nicotine dependence, unspecified, uncomplicated; Z79.51 Long term (current) use of inhaled steroids; Z79.52 Long term (current) use of systemic steroids; Z79.899 Other long term (current) drug therapy; Z79.890 Hormone replacement therapy; Z88.0 Allergy status to penicillin; Z88.1 Allergy status to other antibiotic agents; Z88.3 Allergy status to other anti-infective agents; Z88.6 Allergy status to analgesic agent; Z88.8 Allergy status to other drugs, medicaments and biological substances; Y92.488 Other paved roadways as the place of occurrence of the external cause; V49.88XA Car occupant (driver) (passenger) injured in other specified transport accidents, initial encounter
CPT/HCPCS: 71045; 71260; 72125; 72128; 72190; 74177; 80048; 80076; 81001; 82550; 84484; 85025; 87086; 87088; 87186; 93005; 96361; 96374; 99285; Q9967

== ENCOUNTER 2022-05-26 13:10 | Inpatient (IN) | payer MEDICAID, SELFPAY ==
[2022-05-26] VITALS (14 sets, daily range): BP systolic 128–172; BP diastolic 81–101; PULSE 96–118; RESP 18–34; TEMP 36.7–37; O2SAT 90–95; BMI 58.6; BMI 55.7
--- NOTE | 2022-05-26 13:20 | PC.NURSE ---
ED MD AT BEDSIDE
--- NOTE | 2022-05-26 13:21 | XR_ITS ---
FINAL REPORT CLINICAL HISTORY: concern for pneumonia, soa, congestion COMPARISON: May 23, 2022 FINDINGS: A single portable view of the chest was obtained. The patient is rotated to the right. There is cardiomegaly. The mediastinum is within normal limits. There are worsening pulmonary opacities worrisome for bilateral pneumonia. The bony thorax is intact. IMPRESSION: Findings worrisome for bilateral pneumonia. Reviewed, Interpreted and Dictated by Ayden Yeager III, MD Transcribed by Nina Noe Authenticated and [facility]
[2022-05-26 13:33] LABS: VBG Base Excess 4.6 mmol/L (-2.4-2.3); VBG HCO3 31.3 mmol/L (23-30); VBG Oxygen Saturation 93.3 % (50-70); VBG PH 7.28 mmol/L (7.31-7.41); VBG PO2 60.9 mmol/L (28-40); VBG Total CO2 33.4 mmol/L (23-27)
[2022-05-26 13:34] LABS: Basophils # 0.1 K/mm3 (0-0.2); Basophils % 0.7 % (0.1-2.0); Chloride 94 mmol/L (98-107); Eosinophils # 0.1 K/mm3 (0.0-0.4); Eosinophils % 0.9 % (0.1-12.0); Hematocrit 55.1 % (37.0-47.0); Hemoglobin 17.9 g/dL (12.2-16.2); Lymphocytes # 0.6 K/mm3 (0.7-4.5); Lymphocytes % 6.4 % (10-50); MANUAL DIFFERENTIAL MANUAL DIFFERENTIAL (MANUAL DIFF); Mean Corpuscular HGB Conc 32.4 g/dL (31.8-35.4); Mean Corpuscular Hemoglobin 28.7 pg (27.0-31.2); Mean Corpuscular Volume 88.5 fl (81-99); Mean Platelet Volume 7.5 fl (7.4-10.4); Monocytes # 0.6 K/mm3 (0.1-1.0); Monocytes % 5.6 % (1.7-9.3); Neutrophils # 8.6 K/mm3 (1.8-7.8); Neutrophils % 86.4 % (37.0-80.0); Platelet Count 184 K/mm3 (142-424); Potassium 3.7 mmoL/L (3.5-5.1); Red Blood Count 6.23 M/mm3 (4.20-5.40); Sodium 135 mmol/L (136-145)
[2022-05-26 13:37] LABS: Alanine Aminotransferase 16 U/L (12-78); Albumin Level 3.9 g/dl (3.5-5.0); Albumin/Globulin Ratio 1.3 (1.1-1.8); Alkaline Phosphatase 207 U/L (38-126); Anion Gap 8.7 mEq/L (5-15); Aspartate Amino Transferase 21 U/L (14-36); Bilirubin,Total 0.7 mg/dl (0.2-1.3); Blood Urea Nitrogen 9 mg/dl (7-17); Calcium 8.9 mg/dl (8.4-10.2); Carbon Dioxide 36 mmol/L (22.0-30.0); Creatinine Clearance Estimated 71 mL/min (50-200); Estimated Glomerular Filt Rate 82 ml/min (>60); GFR (African American) 99 ML/MIN (>60); Globulin 3.1 g/dL (1.3-3.2); Glucose 125 mg/dl (74-100)
[2022-05-26 13:43] LABS: C-Reactive Protein 207.2 mg/L (0-4)
[2022-05-26 13:46] LABS: NT Pro Brain Natriuretic Pep. 5730 pg/mL (0-125)
[2022-05-26 13:48] LABS: Lymphocytes % 6 % (10-50); Monocytes % 5 % (2-9); Neutrophils % 89 % (42-76); Total Cells Counted 100
[2022-05-26 13:49] LABS: Platelet Estimate Normal; RBC Morphology P
[2022-05-26 13:57] LABS: Lactic Acid 0.8 mmol/L (0.7-2.1)
--- NOTE | 2022-05-26 14:00 | PC.NURSE ---
1400 PT VBG REPORTED PER RESPIRATORY TO DR. ROJAS, PT PLACED ON BI-PAP PER VERBAL MD ORDER. SETTINGS PER RESPIRATORY
[2022-05-26 14:13] LABS: VBG PCO2 67.9 mmol/L (35-51)
--- NOTE | 2022-05-26 14:45 | PC.NURSE ---
1445 PT TOLERATING BI-PAP, NO NEEDS AT THIS TIME
--- NOTE | 2022-05-26 15:18 | PC.NURSE ---
PT PROVIDED BEDSIDE COMMODE, AMBULATES WITHOUT DIFFICULTY
[2022-05-26 15:31] LABS: ABG Base Excess 4.8 mmol/L (-2.4-2.3); ABG HCO3 31.1 mmhg (22.0-26.0); ABG Oxygen Saturation 90 % (90-100); ABG PO2 60.2 mmhg (80-100); ABG TCO2 33.1 mmhg (23-27)
[2022-05-26 15:32] LABS: Allen's Test ACCEPTABLE; Oxygen 40 %; Vent Rate 20
[2022-05-26 15:33] LABS: Source Left Radial
[2022-05-26 15:36] LABS: ABG PCO2 64.3 mmhg (35.0-45.0)
--- NOTE | 2022-05-26 15:38 | PC.NURSE ---
Padmini from Respiratory called criticals on patient 7.3pH 64 PCO2 60 PO2 31 BiCarb 90% O2 Sat
[2022-05-26 16:24] LABS: Coronavirus 19, PCR Not Detected (NotDetected); Influenza A, PCR Not Detected (NotDetected); Influenza B, PCR Not Detected (NotDetected)
--- NOTE | 2022-05-26 16:26 | PC.NURSE ---
NOTIFIED REGISTRATION OF ADMISSION AND GAVE BED ASSIGNMENT.
--- NOTE | 2022-05-26 16:34 | PC.NURSE ---
DR. ROJAS AT BEDSIDE TO UPDATE PT AND FAMILY ON POC
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
--- NOTE | 2022-05-26 17:00 | PC.NURSE ---
while respiratory came down to readjust the bi-pap for a better seal. as the mask was taking off the patient immediately dropped to 86 on room air. the Bi-pap mask was re applied and her SAT is now back up to 92
--- NOTE | 2022-05-26 17:24 | PC.NURSE ---
REPORT GIVEN TO Karolina ANDRADE RN
--- NOTE | 2022-05-26 17:45 | PC.NURSE ---
1745 PT TRANSFERRED TO TO MED SURG WITH ASSISTANCE OF RESPIRATORY
--- NOTE | 2022-05-26 19:12 | PC.NURSE ---
Educated pt on incentive spirometer and strict i/o's.
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
[2022-05-26 19:55] LABS: D-Dimer 1.01 ug/mL (0.0-0.5)
--- NOTE | 2022-05-26 20:45 | CT_ITS ---
PROCEDURE INFORMATION: Exam: CTA Chest With Contrast Exam date and time: 05/26/2022 9:09 PM Age: 36 years old Clinical indication: Condition or disease and abnormal findings; Abnormal diagnostic tests; Elevated d-dimer; Lung condition and disease; Hypoxia; Additional info: Elevated d-dimer, hypoxia TECHNIQUE: Imaging protocol: Computed tomographic angiography of the chest with contrast. 3D rendering (Not supervised by radiologist): MIP and/or 3D reconstructed images were created by the technologist. Radiation optimization: All CT scans at this facility use at least one of these dose optimization techniques: automated exposure control; mA and/or kV adjustment per patient size (includes targeted exams where dose is matched to clinical indication); or iterative reconstruction. Contrast material: ISOVUE; Contrast volume: 70 ml; Contrast route: INTRAVENOUS (IV); COMPARISON: CT ANGIO CHEST PE PROTOCOL 04/06/2021 12:25 PM FINDINGS: Pulmonary arteries: Enlarged main pulmonary artery trunk measures up to 3.5 cm. No large or central filling defects. No visible lobar filling defects. Peripheral emboli may be obscured by respiratory motion artifact and suboptimal contrast bolus (attenuation coefficient in the main pulmonary artery is 200 Hounsfield units). Aorta: Unremarkable. No aortic aneurysm. No aortic dissection. Lungs: There is extensive ground-glass opacity throughout both lungs compelling for atypical pneumonia. Calcified granuloma noted in the left lower lobe. Bronchial wall thickening and mild bronchial luminal narrowing is demonstrated. Pleural spaces: Unremarkable. No pneumothorax. No pleural effusion. Heart: Heart size is normal. RV/LV equals 0.8. Lymph nodes: Unremarkable. No enlarged lymph nodes. Gallbladder and bile ducts: Prior cholecystectomy. Stomach and bowel: Prior gastric bypass procedure. Bones/joints: There are healed and healing fractures of the ribs bilaterally. Acute fractures are noted on the right involving ribs for through 6 and left ribs for through 6. Spine, sternum, and shoulder girdles appear intact. Soft tissues: Unremarkable. IMPRESSION: 1. Exam sensitivity is somewhat compromised by respiratory motion and suboptimal contrast bolus; however, the opacified pulmonary artery tree is clear and there are no features of right ventricular strain. 2. There has been progression of ground-glass infiltrate throughout both lungs suggestive of atypical infection, most commonly seen with COVID-19 pneumonia. 3. There are acute bilateral rib fractures. No other acute bony injury is evident. Of note, there are numerous bilateral rib fractures in various stages of healing. Query safety of patient's environment.
[2022-05-26 21:59] LABS: ABG HCO3 34.2 mmhg (22.0-26.0); ABG Oxygen Saturation 95 % (90-100); ABG PH 7.38 mmol/L (7.35-7.45); Oxygen 40 %; PEEP 5
[2022-05-26 22:00] LABS: Allen's Test Non Applicable; Pressure Support 13; Source Left Brachial
[2022-05-26 22:02] LABS: ABG PCO2 59.2 mmhg (35.0-45.0)
[2022-05-27] VITALS (11 sets, daily range): BP systolic 117–153; BP diastolic 75–92; PULSE 75–99; RESP 18–23; TEMP 36.7–36.9; O2SAT 90–96; BMI 55.1; BMI 54.9
--- NOTE | 2022-05-27 02:55 | PC.NURSE ---
Pt is in bed resting with mother at bedside. Pt is now wearing 02@2L per NC, sats are in the 90's. pt wore Bipap half the night. Lungs have Bilat Rhonchi, resp are even and non labored at this time. Pt has been up to bedside toilet earlier in the shift. Has had a PRN Xanax and Pain medication. Pt reports it helped with pain and anxiety. Pt educated on Plan of care, encouraged to report any shortness of air to nurse. IV is patent and SL. Bed locked in low position, side rails up x 2, call light within reach.
[2022-05-27 06:32] LABS: Basophils # 0.1 K/mm3 (0-0.2); Basophils % 0.5 % (0.1-2.0); Chloride 96 mmol/L (98-107); Eosinophils # 0.1 K/mm3 (0.0-0.4); Hematocrit 51.9 % (37.0-47.0); Hemoglobin 16.8 g/dL (12.2-16.2); Lymphocytes # 0.7 K/mm3 (0.7-4.5); Lymphocytes % 7.2 % (10-50); Mean Corpuscular HGB Conc 32.4 g/dL (31.8-35.4); Mean Corpuscular Hemoglobin 28.1 pg (27.0-31.2); Mean Corpuscular Volume 86.5 fl (81-99); Mean Platelet Volume 7.9 fl (7.4-10.4); Monocytes # 0.7 K/mm3 (0.1-1.0); Monocytes % 7.5 % (1.7-9.3); Neutrophils % 83.8 % (37.0-80.0); Platelet Count 176 K/mm3 (142-424); Potassium 3.6 mmoL/L (3.5-5.1); Red Cell Distribution Width 16.2 % (11.5-17.5); Sodium 137 mmol/L (136-145); White Blood Count 9.6 K/mm3 (4.8-10.8)
[2022-05-27 06:34] LABS: Blood Urea Nitrogen 11 mg/dl (7-17); Creatinine Clearance Estimated 85 mL/min (50-200); Estimated Glomerular Filt Rate 96 ml/min (>60); GFR (African American) 116 ML/MIN (>60)
[2022-05-27 06:35] LABS: Alanine Aminotransferase 12 U/L (12-78); Albumin Level 3.3 g/dl (3.5-5.0); Albumin/Globulin Ratio 1.1 (1.1-1.8); Alkaline Phosphatase 175 U/L (38-126); Anion Gap 5.6 mEq/L (5-15); Aspartate Amino Transferase 17 U/L (14-36); Bilirubin,Total 0.4 mg/dl (0.2-1.3); Calcium 8.7 mg/dl (8.4-10.2); Carbon Dioxide 39 mmol/L (22.0-30.0); Glucose 93 mg/dl (74-100); Magnesium 2.3 mg/dl (1.6-2.3); Total Protein,Serum 6.3 g/dl (6.3-8.2)
[2022-05-27 07:25] LABS: ABG Base Excess 7.5 mmol/L (-2.4-2.3); ABG HCO3 32.6 mmhg (22.0-26.0); ABG Oxygen Saturation 91 % (90-100); ABG PH 7.38 mmol/L (7.35-7.45); ABG PO2 57.4 mmhg (80-100); ABG TCO2 34.3 mmhg (23-27)
[2022-05-27 07:30] LABS: ABG PCO2 56.5 mmhg (35.0-45.0); Allen's Test ACCEPTABLE; Oxygen 4LPM %; Source R RADIAL
--- NOTE | 2022-05-27 07:38 | PC.NURSE ---
Notified Dr. Causey of abg results.
--- NOTE | 2022-05-27 07:42 | HMH.PHAINT1 ---
Pharmacy Intervention Comments: Medication reconciliation completed via chart review and external fill history. -Indy Albrecht, PharmD Candidate 2022
[2022-05-27 08:14] LABS: Hemoglobin A1C 5.2 % (4.0-6.0)
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
[2022-05-27 10:27] LABS: Lactate Dehydrogenase 258 U/L (313-618)
[2022-05-27 10:32] LABS: C-Reactive Protein 121.2 mg/L (0-4)
[2022-05-27 12:24] LABS: Mycoplasma Pneumo IGM (Rapid) Non-Reactive (Non-Reactiv)
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
--- NOTE | 2022-05-27 18:25 | EXP.ACUTE.PN ---
Subjective *Date: 05/27/22 *Time: 14:28 Interval history: Patient on less oxygen this morning. Still having significant respiratory distress. Tolerating p.o. intake. Responding well to diuresis. No nausea or vomiting. Pain prominent but stable. Discussed starting lidocaine patch today. Family at bedside, updated of plan. Afebrile and hemodynamically stable overnight Medical Exam Vital signs and Labs for Last 24 Hours: Vital Signs Temp Pulse Pulse Pulse Resp BP Pulse Ox 05/27/22 18:20 96 H 05/27/22 18:20 96 H 05/27/22 18:20 92 L 05/27/22 15:36 98.2 F 89 18 117/79 05/27/22 12:44 88 05/27/22 12:44 78 05/27/22 11:44 98.5 F 90 21 142/77 H 91 L 05/27/22 07:58 98.1 F 95 H 23 153/84 H 91 L 05/27/22 06:10 92 H 05/27/22 06:10 94 H 05/27/22 06:10 90 L 05/27/22 04:00 98.1 F 99 H 20 122/92 H 93 L 05/27/22 00:00 98.0 F 88 23 121/80 96 05/27/22 00:19 75 05/27/22 00:19 84 05/26/22 20:00 98.0 F 118 H 18 172/101 H 91 L 05/26/22 19:20 114 H 05/26/22 19:20 111 H 05/26/22 19:20 FiO2 05/27/22 18:20 05/27/22 18:20 05/27/22 18:20 05/27/22 15:36 05/27/22 12:44 05/27/22 12:44 05/27/22 11:44 05/27/22 07:58 05/27/22 06:10 05/27/22 06:10 05/27/22 06:10 05/27/22 04:00 05/27/22 00:00 05/27/22 00:19 05/27/22 00:19 05/26/22 20:00 05/26/22 19:20 05/26/22 19:20 05/26/22 19:20 40 Intake and Output 1205/27/22 05/27/22 07:59 15:59 23:59 Intake Total 600 / 600 Output Total 700 / 2700 1600 / 2700 400 / 2700 Balance -700 / -2100 -1000 / -2099 - / 2100 Intake: Intake, Oral Amount 600 / 600 Output: Output, Urine Amount 700 / 2700 1600 / 2700 400 / 2700 Other: Weight 132.54 kg 132 kg Patient Weight 05/27/22 23:59 Weight 132 kg Laboratory Results - last 24 hr 05/26/22 13:15: D-Dimer 1.01 H 05/26/22 21:30: Specimen Source Left brachial, O2 % 40, ABG pH 7.38, ABG pCO2 59.2 H, ABG pO2 70.0 L, ABG HCO3 34.2 H, ABG Total CO2 36.0 H, ABG O2 Saturation 95, ABG Base Excess 9.0 H, Biju Test Non applicable, PEEP 5 05/27/22 06:00: WBC 9.6, RBC 6.00 H, Hgb 16.8 H, Hct 51.9 H, MCV 86.5, MCH 28.1, MCHC 32.4, RDW 16.2, Plt Count 176, MPV 7.9, Neut % (Auto) 83.8 H, Lymph % (Auto) 7.2 L, [place] % (Auto) 7.5, Eos % (Auto) 1.0, Baso % (Auto) 0.5, Neut # (Auto) 8.0 H, Lymph # (Auto) 0.7, [place] # (Auto) 0.7, Eos # (Auto) 0.1, Baso # (Auto) 0.1 05/27/22 06:00: Sodium 137, Potassium 3.6, Chloride 96 L, Carbon Dioxide 39 H, Anion Gap 5.6, BUN 11, Creatinine 0.70, Estimated Creat Clear 85, Estimated GFR 96, Est GFR ( Amer) 116, Glucose 93 D, Calcium 8.7, Magnesium 2.3, Total Bilirubin 0.4, AST 17, ALT 12, Alkaline Phosphatase 175 H, Total Protein 6.3, Albumin 3.3 L D, Globulin 3.0, Albumin/Globulin Ratio 1.1 05/27/22 06:00: Hemoglobin A1c 5.2 05/27/22 06:00: Lactate Dehydrogenase 258 L, C-Reactive Protein 121.2 H 05/27/22 06:21: Specimen Source R radial, O2 % 4lpm, ABG pH 7.38, ABG pCO2 56.5 H, ABG pO2 57.4 L, ABG HCO3 32.6 H, ABG Total CO2 34.3 H, ABG O2 Saturation 91, ABG Base Excess 7.5 H, Biju Test Acceptable 05/27/22 08:38: Mycoplasma pneumon IgM Non-reactive I & O for Labs for Last 24 Hours: Intake & Output 05/24/22 05/25/22 05/26/22 05/27/22 23:59 23:59 23:59 23:59 Intake Total 600 / 600 Output Total 200 / 200 2700 / 2700 Balance -200 / -200 -2100 / -2100 Weight 133.951 kg 132 kg Microbiology Reports for the Last 24 Hours: Microbiology 05/26/22 06:09 Sputum - Expectorated Sputum Gram Stain - Final Constitutional: Present mild distress, morbidly obese and chronically ill appearing Head: Present atraumatic and normocephalic ENT: Present normal exam Neck: Present normal inspection Respiratory: Present accessory muscle use, rhonchi and wheezes; Absent crackles Cardiac: Present Reg Rate and Rhythm GI: Prese
[2022-05-27 20:35] LABS: Adenovirus,PCR Not Detected (NotDetected); Bordetella Pertussis Not Detected (NotDetected); Chlamydophila Pneumoniae, PCR Not Detected (NotDetected); Coronavirus 19, PCR Not Detected (NotDetected); Coronavirus 229E Not Detected (NotDetected); Coronavirus NL63 Not Detected (NotDetected); Coronavirus OC43 Not Detected (NotDetected); Coronovirus HKU1,PCR Not Detected (NotDetected); Human Metapneumovirus Not Detected (NotDetected); Influenza A, PCR Not Detected (NotDetected); Influenza AH1, 2009 Not Detected (NotDetected); Influenza AH1, PCR Not Detected (NotDetected); Influenza AH3,PCR Not Detected (NotDetected); Influenza B, PCR Not Detected (NotDetected); Mycoplasma Pneumoniae, PCR Not Detected (NotDetected); Parainfluenza 1, PCR Not Detected (NotDetected); Parainfluenza 2, PCR Not Detected (NotDetected); Parainfluenza 3, PCR Not Detected (NotDetected); Parainfluenza 4, PCR Not Detected (NotDetected); Respiratory Syncytial Virus Not Detected (NotDetected)
[2022-05-28] VITALS (13 sets, daily range): BP systolic 125–154; BP diastolic 68–89; PULSE 77–101; RESP 19–22; TEMP 36.6–37.2; O2SAT 89–95; BMI 54.8
[2022-05-28 02:25] LABS: Rhinovirus/Enterovirus Detected (NotDetected)
--- NOTE | 2022-05-28 05:17 | PC.NURSE ---
Pt remains on 3L NC and is tolerating well with O2 sats >90%. She was on Bipap for several hours last night and tolerated well. Severe rhonchi noted bilaterally. Slight wheezing noted posteriorly this am. Pt noted to have productive cough with yellow/light green sputum. No use of accessory muscles or acute distress noted. Pt uses incentive spirometer while awake. Pt was medicated for pain and anxiety PRN per MAR this shift and reported relief. Lidocaine patch noted to chest. Urine specimen collected and sent to lab this morning. Pt uses BSC with standby assistance. 20G IV in RAC Patent and saline locked.
[2022-05-28 07:10] LABS: Basophils % 0.3 % (0.1-2.0); Eosinophils % 0.2 % (0.1-12.0); Hematocrit 53.7 % (37.0-47.0); Lymphocytes # 0.5 K/mm3 (0.7-4.5); Lymphocytes % 6.3 % (10-50); Mean Corpuscular HGB Conc 31.7 g/dL (31.8-35.4); Mean Corpuscular Hemoglobin 27.9 pg (27.0-31.2); Mean Corpuscular Volume 87.9 fl (81-99); Monocytes # 0.3 K/mm3 (0.1-1.0); Monocytes % 3.8 % (1.7-9.3); Neutrophils # 7.8 K/mm3 (1.8-7.8); Neutrophils % 89.4 % (37.0-80.0); Platelet Count 171 K/mm3 (142-424); Red Blood Count 6.11 M/mm3 (4.20-5.40); White Blood Count 8.7 K/mm3 (4.8-10.8)
[2022-05-28 07:17] LABS: MANUAL DIFFERENTIAL MANUAL DIFFERENTIAL (MANUAL DIFF)
[2022-05-28 07:24] LABS: Chloride 97 mmol/L (98-107); Sodium 138 mmol/L (136-145)
[2022-05-28 07:25] LABS: Potassium 4.4 mmoL/L (3.5-5.1)
[2022-05-28 07:27] LABS: Alanine Aminotransferase 13 U/L (12-78); Alkaline Phosphatase 149 U/L (38-126); Anion Gap 7.4 mEq/L (5-15); Aspartate Amino Transferase 34 U/L (14-36); Bilirubin,Total 0.7 mg/dl (0.2-1.3); Blood Urea Nitrogen 18 mg/dl (7-17); Carbon Dioxide 38 mmol/L (22.0-30.0); Creatinine Clearance Estimated 85 mL/min (50-200); Estimated Glomerular Filt Rate 96 ml/min (>60); GFR (African American) 116 ML/MIN (>60)
[2022-05-28 07:28] LABS: Albumin Level 3.2 g/dl (3.5-5.0); Albumin/Globulin Ratio 1.2 (1.1-1.8); Calcium 8.8 mg/dl (8.4-10.2); Globulin 2.7 g/dL (1.3-3.2); Glucose 95 mg/dl (74-100); Total Protein,Serum 5.9 g/dl (6.3-8.2)
[2022-05-28 08:44] LABS: Lymphocytes % 6 % (10-50); Monocytes % 2 % (2-9); Neutrophils % 92 % (42-76); Platelet Estimate Normal; RBC Morphology Normal; Total Cells Counted 100
--- NOTE | 2022-05-28 15:56 | EXP.ACUTE.PN ---
Subjective *Date: 05/28/22 *Time: 15:56 Interval history: Patient on 3 L this morning on rounds. Breathing stable. Comprehensive respiratory panel came back showing rhinovirus. Remains afebrile. Ambulating to bathroom. Still having significant chest pain. Denies nausea, vomiting, diarrhea. Reports she has not had a bowel movement in 2 days. Medical Exam Vital signs and Labs for Last 24 Hours: Vital Signs Temp Pulse Pulse Resp BP Pulse Ox FiO2 05/28/22 15:06 98.5 F 81 20 134/68 90 L 05/28/22 14:16 87 05/28/22 14:16 85 05/28/22 14:16 89 L 05/28/22 11:26 98.5 F 91 H 20 149/76 H 90 L 05/28/22 09:34 81 05/28/22 09:34 82 05/28/22 07:24 98.9 F 77 19 143/81 H 89 L 05/28/22 06:20 80 05/28/22 06:20 81 05/28/22 06:20 90 L 05/28/22 04:00 97.8 F 81 20 154/89 H 95 05/28/22 01:40 80 05/28/22 01:40 79 05/28/22 00:00 98.0 F 80 22 140/79 94 L 05/27/22 22:57 40 05/27/22 20:00 98.4 F 90 20 126/75 90 L 05/27/22 18:20 96 H 05/27/22 18:20 96 H 05/27/22 18:20 92 L Intake and Output 05/27/22 05/28/22 05/28/22 23:59 07:59 15:59 Intake Total 0 / 120 120 / 120 Output Total 900 / 3200 600 / 600 Balance -900 / -2600 -600 / -480 120 / -480 Intake: Intake, Oral Amount 0 / 120 120 / 120 Output: Output, Urine Amount 900 / 3200 600 / 600 Other: Weight 131.633 kg Patient Weight 05/28/22 23:59 Weight 131.633 kg Laboratory Results - last 24 hr 05/27/22 20:19: Chlamy pneumoniae PCR Not detected, Adenovirus (PCR) Not detected, B. pertussis DNA (PCR) Not detected, Coronavirus OC43 (PCR) Not detected, Coronavirus HKU1 (PCR) Not detected, Coronavirus 229E (PCR) Not detected, SARS-CoV-2 (PCR) Not detected, Coronavirus NL63 (PCR) Not detected, Human Metapneumovir PCR Not detected, Influenza A (H1) PCR Not detected, Influ A (H1N1/09) PCR Not detected, Influenza A (H3) PCR Not detected, Influenza Type A (PCR) Not detected, Influenza Type B (PCR) Not detected, M. pneumoniae (PCR) Not detected, Parainfluenza 1 (PCR) Not detected, Parainfluenza 2 (PCR) Not detected, Parainfluenza 3 (PCR) Not detected, Parainfluenza 4 (PCR) Not detected, RSV (PCR) Not detected, Entero/Rhino (PCR) Detected A 05/28/22 06:03: WBC 8.7, RBC 6.11 H, Hgb 17.0 H, Hct 53.7 H, MCV 87.9, MCH 27.9, MCHC 31.7 L, RDW 16.0, Plt Count 171, MPV 8.0, Neut % (Auto) 89.4 H, Lymph % (Auto) 6.3 L, [place] % (Auto) 3.8, Eos % (Auto) 0.2, Baso % (Auto) 0.3, Neut # (Auto) 7.8, Lymph # (Auto) 0.5 L, [place] # (Auto) 0.3, Eos # (Auto) 0.0, Baso # (Auto) 0.0, Total Counted 100, Neutrophils % (Manual) 92 H, Lymphocytes % (Manual) 6 L, Monocytes % (Manual) 2, Platelet Estimate Normal, RBC Morphology Normal 05/28/22 06:03: Sodium 138, Potassium 4.4 D, Chloride 97 L, Carbon Dioxide 38 H, Anion Gap 7.4, BUN 18 H D, Creatinine 0.70, Estimated Creat Clear 85, Estimated GFR 96, Est GFR ( Amer) 116, Glucose 95, Calcium 8.8, Total Bilirubin 0.7, AST 34 D, ALT 13, Alkaline Phosphatase 149 H, Total Protein 5.9 L, Albumin 3.2 L, Globulin 2.7, Albumin/Globulin Ratio 1.2 I & O for Labs for Last 24 Hours: Intake & Output 12/13/05/26/22 05/27/22 05/28/22 23:59 23:59 23:59 23:59 Intake Total 600 / 600 120 / 120 Output Total 200 / 200 3200 / 3200 600 / 600 Balance -200 / -200 -2600 / -2600 -480 / -480 Weight 133.951 kg 132 kg 131.633 kg Microbiology Reports for the Last 24 Hours: Microbiology 05/26/22 13:32 Blood - Other Blood Culture - Preliminary NO GROWTH AFTER 48 HOURS 05/26/22 13:32 Blood - Other Blood Culture - Preliminary NO GROWTH AFTER 48 HOURS 05/26/22 06:09 Sputum - Expectorated Sputum Gram Stain - Final 05/26/22 06:09 Sputum - Expectorated Sputum Sputum Culture - Preliminary Constitutional: Present mild distress, morbidly obese and chronicall
--- NOTE | 2022-05-28 18:14 | PC.NURSE ---
Pain controlled with lidocaine patch on chest and percocet q6 prn. VS stable, not able to wean patient from 3LNC. Patient's oxygen would decrease to 85% with movement. Lungs sounds on ascultation are inspiratory rhonchi with expiratory wheezing at bases. IV antibiotics given.
[2022-05-29] VITALS (7 sets, daily range): BP systolic 123–152; BP diastolic 68–84; PULSE 80–102; RESP 18–22; TEMP 36.9; O2SAT 90–95; BMI 54.6
--- NOTE | 2022-05-29 03:31 | PC.NURSE ---
travis moya aprn was notified of pt with 02 sats 85-88% on 02 at 5L, pt is refusing to wear bipap, 02 increased per RT, no acute distress noted, RT at bedside to discuss with patient importance of bipap. pt agreed to having bipap in place after lengthy discussion on the need for it, pt did not want to put bipap on because she wanted to go home today, will continue to monitor.
[2022-05-29 06:50] LABS: ABG Base Excess 11.2 mmol/L (-2.4-2.3); ABG HCO3 35.8 mmhg (22.0-26.0); ABG Oxygen Saturation 94 % (90-100); ABG PH 7.41 mmol/L (7.35-7.45); ABG PO2 65.7 mmhg (80-100); ABG TCO2 37.6 mmhg (23-27)
[2022-05-29 06:51] LABS: Allen's Test Acceptable; Oxygen 40% %; Pressure Support 13; Source Right Radial
[2022-05-29 06:54] LABS: ABG PCO2 58.1 mmhg (35.0-45.0)
--- NOTE | 2022-05-29 07:43 | PC.NURSE ---
pt with low sats through the night, 02 sats 85-88% on 5L, pt encouraged to wear bipap as pt refused most of the night, abg obtained this am and results were called to dr carney per rt, pt in no acute distress, lung sounds with bilateral wheezing, mother remained at bedside through the night
[2022-05-29 07:54] LABS: Basophils # 0.1 K/mm3 (0-0.2); Basophils % 0.6 % (0.1-2.0); Eosinophils # 0.1 K/mm3 (0.0-0.4); Eosinophils % 0.6 % (0.1-12.0); Hematocrit 56.6 % (37.0-47.0); Hemoglobin 17.9 g/dL (12.2-16.2); Lymphocytes # 0.9 K/mm3 (0.7-4.5); Lymphocytes % 8.5 % (10-50); Mean Corpuscular HGB Conc 31.7 g/dL (31.8-35.4); Mean Corpuscular Volume 88.4 fl (81-99); Mean Platelet Volume 7.8 fl (7.4-10.4); Monocytes # 0.6 K/mm3 (0.1-1.0); Monocytes % 4.9 % (1.7-9.3); Neutrophils # 9.5 K/mm3 (1.8-7.8); Neutrophils % 85.5 % (37.0-80.0); Platelet Count 214 K/mm3 (142-424); Red Cell Distribution Width 15.9 % (11.5-17.5); White Blood Count 11.1 K/mm3 (4.8-10.8)
[2022-05-29 07:56] LABS: MANUAL DIFFERENTIAL MANUAL DIFFERENTIAL (MANUAL DIFF)
[2022-05-29 08:10] LABS: Chloride 96 mmol/L (98-107)
[2022-05-29 08:11] LABS: Potassium 4.2 mmoL/L (3.5-5.1); Sodium 138 mmol/L (136-145)
[2022-05-29 08:13] LABS: Alanine Aminotransferase 19 U/L (12-78); Aspartate Amino Transferase 31 U/L (14-36); Blood Urea Nitrogen 21 mg/dl (7-17); Creatinine Clearance Estimated 75 mL/min (50-200); Estimated Glomerular Filt Rate 82 ml/min (>60); GFR (African American) 99 ML/MIN (>60)
[2022-05-29 08:14] LABS: Albumin Level 3.4 g/dl (3.5-5.0); Albumin/Globulin Ratio 1.1 (1.1-1.8); Alkaline Phosphatase 140 U/L (38-126); Anion Gap 8.2 mEq/L (5-15); Bilirubin,Total 0.6 mg/dl (0.2-1.3); Carbon Dioxide 38 mmol/L (22.0-30.0); Globulin 3.1 g/dL (1.3-3.2); Glucose 131 mg/dl (74-100); Magnesium 2.3 mg/dl (1.6-2.3); Total Protein,Serum 6.5 g/dl (6.3-8.2)
[2022-05-29 08:19] LABS: C-Reactive Protein 21.7 mg/L (0-4)
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
[2022-05-29 09:34] LABS: Lymphocytes % 12 % (10-50); Monocytes % 3 % (2-9); Neutrophils % 85 % (42-76); Total Cells Counted 100
[2022-05-29 09:35] LABS: Platelet Estimate Normal; RBC Morphology Normal
--- NOTE | 2022-05-29 11:53 | PC.NURSE ---
pt has been discharged from the unit via private car. took all belongings with her including home medications. IV discontinued. pt has home oxygen and i educated them on importance of not smoking during oxygen use. I also told her she should be wearing oxygen during transport to home but pt refused.
--- NOTE | 2022-05-31 13:28 | CARE MANAGER ---
Called and spoke with patient regarding post discharge status. She has picked up and started new medications, and has made a f/u appt with Dr. Yang. No concerns or complaints at time of call.
[2022-06-01 15:37] LABS: Body Fluid Culture, Sterile Not indicated. (.); Organism ID Not indicated. (.); Specimen Source Urine (.); Streptococcus pneumoniae Ag Negative (Negative)
[2022-06-01 16:23] LABS: Legionella pneumophila Urinary Negative (Negative)
[2022-06-14 19:44] LABS: Antinuclear Antibodies (ANA) NEGATIVE
== END 2022-05-29 11:35 | disposition home or self-care (01) | DRG 871 ==
LOC: ER 16:29 → 2ND 16:59
PROVIDERS: Internal Medicine Pulmonary Disease; Nurse Practitioner Family; Admitting Provider Internal Medicine Adolescent Medicine; Emergency Provider Student in an Organized Health Care Education/Training Program; Visit Provider Internal Medicine Adolescent Medicine
DX: A41.9 Sepsis, unspecified organism (principal); J15.212 Pneumonia due to Methicillin resistant Staphylococcus aureus; J96.21 Acute and chronic respiratory failure with hypoxia; S22.32XA Fracture of one rib, left side, initial encounter for closed fracture; S22.31XA Fracture of one rib, right side, initial encounter for closed fracture; Z68.43 Body mass index [BMI] 50.0-59.9, adult; Q61.3 Polycystic kidney, unspecified; I50.30 Unspecified diastolic (congestive) heart failure; Z99.81 Dependence on supplemental oxygen; E66.01 Morbid (severe) obesity due to excess calories; F17.210 Nicotine dependence, cigarettes, uncomplicated; G89.4 Chronic pain syndrome; J43.9 Emphysema, unspecified; X58.XXXA Exposure to other specified factors, initial encounter; S20.219A Contusion of unspecified front wall of thorax, initial encounter; F41.9 Anxiety disorder, unspecified
CPT/HCPCS: 36415; 71045; 71275; 80053; 82803; 83036; 83605; 83615; 83735; 83880; 85007; 85025; 85378; 86038; 86140; 86738; 87040; 87070; 87077; 87186; 87205; 87581; 87632; 87798; 87899; 93306; 94640; 94660; 94761; 99285; C9803; J0456; J0696; J3475; Q9967; U0003; U0005